=== PATIENT | male | born 1960 | race Caucasian/White ===

== ENCOUNTER 2020-03-03 13:01 | Emergency (ER) | payer BC ==
--- NOTE | 2020-03-03 13:34 | EDM.PDOC ---
ED HPI GENERAL MEDICAL PROBLEM - General Chief Complaint: Lower Extremity Injury/Pain Stated Complaint: LEG PAIN Time Seen by Provider: 03/03/20 13:34 Source of Information: Reports: Patient, RN, RN Notes Reviewed History Limitations: Reports: No Limitations - History of Present Illness INITIAL COMMENTS - FREE TEXT/NARRATIVE: Patient presents to ER with complaint of sore to the back of the right calf. Patient also admits to swelling to the right lower extremity, below the knee. Patient states he has a history of polycythemia vera. States he takes only herbal supplements for medication, does take a baby aspirin from time to time. Patient states he power walks, and has had decreased activity since he has been having trouble with his legs. Patient states about a month or 2 ago he was worked up for a blood clot, and that was negative. 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 Patient states he is traveling back to [place] tomorrow, and states he is unable to drive that far with the pain and swelling in the leg. Onset: Gradual Right Leg Pain Score (Numeric/FACES): 9 - Related Data Allergies Allergy/AdvReac Type Severity Reaction Status Date / Time No Known Allergies Allergy Verified 03/03/20 13:21 Home Meds: Home Meds . [No Known Home Meds] 03/03/20 [History] Past Medical History HEENT History: Reports: None Cardiovascular History: Reports: None Respiratory History: Reports: None Gastrointestinal History: Reports: None Genitourinary History: Reports: None Musculoskeletal History: Reports: Back Pain, Chronic Neurological History: Reports: None Psychiatric History: Reports: None Endocrine/Metabolic History: Reports: None Hematologic History: Reports: Polycythemia Immunologic History: Reports: None Oncologic (Cancer) History: Reports: None Other Dermatologic History: sores to body - Infectious Disease History Infectious Disease History: Reports: Chicken Pox, Measles, Mumps - Past Surgical History Head Surgeries/Procedures: Reports: None Social & Family History - Tobacco Use Smoking Status *Q: Former Smoker Years of Tobacco use: 8 Packs/Tins Daily: 0.5 Used Tobacco, but Quit: Yes Month/Year Tobacco Last Used: june Second Hand Smoke Exposure: No - Caffeine Use Caffeine Use: Reports: Soda, Tea - Recreational Drug Use Recreational Drug Use: No Review of Systems - Review of Systems Review Of Systems: Comprehensive ROS is negative, except as noted in HPI. ED EXAM, GENERAL - Physical Exam Exam: See Below Exam Limited By: No Limitations General Appearance: Alert, WD/WN, No Apparent Distress, Anxious, Thin Eye Exam: Bilateral Eye: EOMI, Normal Inspection Ears: Normal External Exam, Hearing Grossly Normal Nose: Normal Inspection Throat/Mouth: Normal Inspection, Normal Voice, No Airway Compromise Head: Atraumatic, Normocephalic Neck: Normal Inspection, Supple, Non-Tender, Full Range of Motion Respiratory/Chest: No Respiratory Distress, Lungs Clear, Normal Breath Sounds, No Accessory Muscle Use, Chest Non-Tender Cardiovascular: Normal Peripheral Pulses, Regular Rate, Rhythm, No Edema, No Gallop, No JVD, No Murmur, No Rub Peripheral Pulses: 2+: Radial (L), Radial (R) GI/Abdominal: Normal Bowel Sounds, Soft, Non-Tender (Male) Exam: Deferred Rectal (Males) Exam: Deferred Back Exam: Normal Inspection, Full Range of Motion, NT Extremities: Leg Pain (Right leg pain, below the ) Course - Vital Signs Last Recorded V/S: Last Vital Signs Temp 97.3 F 03/03/20 13:17 Pulse 76 03/03/20 13:17 Resp 16 03/03/20 13:17 BP 109/77 03/03/20 13:17 Pulse Ox 100 03/03/20 13:17 - Orders/Labs/Meds Labs: Laboratory Tests 03/03/20 03/03/20 03/03/20 Range/Units 14:22 14:22 14:22 WBC 45.4 H* (5.0-10.0) 10^3/uL RBC 6.61 H (4.6-6.2) 10^6/uL Hgb 13.9 L (14.0-18.0) g/dL Hct 43.4 (40.0-54.0) % MCV 65.7 L D (80-100) fL MCH 21.0 L (27.0-34.0) pg MCHC 32.0 L (33.0-35.0) g/dL Plt Count 1618 H* D (150-450) 10^3/uL Neut % (Auto) (42.2-75.2) % Add Manual Diff Yes Neutrophils % (Manual) 76 H (42-75) % Band Neutrophils % 13 % Monocytes % (Manual) 5 (2-8) % Eosinophils % (Manual) 4 H (1-3) % Basophils % (Manual) 2 Vacuolated Monocytes 1+ slight Toxic Granulation 1+ slight Platelet Estimate Marked inc Giant Platelets Few Hypochromasia 1+ slight Poikilocytosis 1+ slight Anisocytosis 3+ marked Microcytosis 2+ moderate Target Cells 1+ slight D-Dimer, Quantitative < 100 (0-400) ng/mL Sodium 131 L (136-145) mmol/L Potassium 5.3 H (3.5-5.1) mmol/L Chloride 95 L (98-107) mmol/L Carbon Dioxide 30 (21-32) mmol/L Anion Gap 11.3 (7-13) mEq/L BUN 14 (7-18) mg/dL Creatinine 0.87 (0.70-1.30) mg/dL Est Cr Clr Drug Dosing 78.40 mL/min Estimated GFR (MDRD) > 60 BUN/Creatinine Ratio 16.1 (No establ ref range) Glucose 88 (74-99) mg/dL Calcium 9.2 (8.5-10.1) mg/dL Total Bilirubin 0.8 (0.2-1.0) mg/dL AST 23 (15-37) U/L ALT 18 (16-63) U/L Alkaline Phosphatase 142 H (46-116) U/L Total Protein 7.4 (6.4-8.2) g/dL Albumin 3.8 (3.4-5.0) g/dL Globulin 3.6 Albumin/Globulin Ratio 1.1 Departure - Departure Time of Disposition: 15:45 Disposition: Home, Self-Care 01 Condition: Fair Clinical Impression: Right calf pain - Discharge Information *PRESCRIPTION DRUG MONITORING PROGRAM REVIEWED*: No *COPY OF PRESCRIPTION DRUG MONITORING REPORT IN PATIENT FERNY: No Instructions: How to Use Cold Therapy, [id number] Forms: ED Department Discharge Additional Instructions: Follow up with your primary care facility Passive ROM exercises frequently while driving Sepsis Event Note (ED) - Evaluation Sepsis Screening Result: No Definite Risk - Focused Exam Vital Signs: Vital Signs Temp Pulse Resp BP Pulse Ox 03/03/20 13:17 97.3 F 76 16 109/77 100
[2020-03-03 14:52] LABS: ANION GAP 11.3 mEq/L (7-13); CHLORIDE,CL 95 mmol/L (98-107); SODIUM,NA 131 mmol/L (136-145)
== END 2020-03-03 15:53 | disposition home or self-care (01) ==
LOC: DL.ED 13:01
DX: M79.661 Pain in right lower leg (principal); M79.89 Other specified soft tissue disorders; Z87.891 Personal history of nicotine dependence
CPT/HCPCS: 36415; 80053; 85025; 85379; 99283